=== PATIENT | male | born 1975 | race Caucasian/White ===

== ENCOUNTER 2017-05-04 20:24 | Emergency (ER) | payer SELFPAY | END 2017-05-04 23:52 | disposition home or self-care (01) | LOC: CFTX 20:24 → CED 20:24 → CFTX 23:10 | DX: L23.5 Allergic contact dermatitis due to other chemical products (principal); Y92.69 Other specified industrial and construction area as the place of occurrence of the external cause | CPT/HCPCS: 99282 ==